=== PATIENT | female | born 1980 | race Caucasian/White ===

== ENCOUNTER 2018-03-13 09:33 | Emergency (ER) | payer OTHER, SELFPAY | END 2018-03-13 10:25 | disposition home or self-care (01) | LOC: ERS 09:33 | DX: H65.91 Unspecified nonsuppurative otitis media, right ear (principal); B34.9 Viral infection, unspecified; M19.90 Unspecified osteoarthritis, unspecified site; G89.29 Other chronic pain | CPT/HCPCS: 99283 ==